=== PATIENT | male | born 1940 | race Caucasian/White ===

== ENCOUNTER → 2016-08-04 | Outpatient (CLI) | payer MEDICARE, BC ==
[~2016-08-04] MED LIST: ASPI-504 PO; ATOR20TA PO; BACL10TA PO; BRIM5DRO6 OD; CAL1TABL7 PO; CARB200T PO; CLIN-78 PO; DPAS20025 PO; FOLI1TAB10 PO; GBPN100C PO; HYDR-707 PO; LSRT50T PO; LTN005OP2 OU; MAGN250T PO; MELO-249 PO; NF-VITB12 PO; PHEN100O4 PO; ROPIVACAINE 1% 10 MG/ML (NAROPIN) 10 ML AMPUL ONE; ROSU5TAB PO; SODI1TAB16 PO; SODIUM CHLORIDE VIAL (PF) 10 ML IV ONE; TRM50T PO
--- NOTE | 2016-08-07 08:49 | PAIN MANAGEMENT ---
Date of note: 08/04/2016 Procedure: Caudal epidural steroid injection with fluoroscopy. Total fluoroscopic time 21 seconds. This is a 75-year-old male patient under the care of Dr. Dequan Coppola. The patient was referred to anesthesia for the purpose of an epidural steroid injection secondary to spinal stenosis with radicular symptoms. He is not new to our services. He was seen approximately last December where he received a caudal epidural steroid injection. He had pain in the low back that radiates straight down the back of his leg and into his feet. He comes in today with similar symptoms. It kind of goes back and forth as far as legs in terms of which ones are the worst. He has some notable edema on the left side down to the foot. The pain is straight down the back of the leg. He has a little bit of involvement at the L5 dermatome level. Based on presentation and what has worked best for him in the past, we decided to proceed forward with another caudal epidural steroid injection. Informed consent was obtained. The patient was taken to the operating room and with the use of fluoroscopic guidance for needle tip placement. Orders for procedure verified. Patient denies any bleeding tendencies. After informed consent obtained, the patient was positioned for the caudal injection. Landmarks identified. The site was prepped and draped using aseptic technique. The skin and overlying tissues were localized with a 3 mL of Preservative-Free 1% lidocaine using a 1.5-inch 27-gauge needle. A 21-gauge 2-inch needle was then inserted to the caudal space via the sacral hiatus. No blood, cerebral spinal fluid, pain, or paresthesia was noted on entry. Depo-Medrol 80 mg and ropivacaine 0.20% in normal saline for a total of 10 mL was injected slowly without mass volume effect. Negative aspiration every 2 mL injected. The needle was then removed and the patient was then turned to the sitting position where he remained for approximately 10 minutes. He was able to walk under his own leg strength to the exit of the hospital. [facility] RN walked with him. Vital signs were stable and faculties intact. He is asked to follow up via my cell phone in approximately 3 days. The patient states he understands these discharge instructions and I will follow him from there.
== END ==
LOC: PMC 13:03
PROVIDERS: ATTEND Family Medicine
DX: M48.06 Spinal stenosis, lumbar region (principal); E11.9 Type 2 diabetes mellitus without complications
CPT/HCPCS: 62323; J2795; J7050